=== PATIENT | male | born 1970 | race Caucasian/White ===

== ENCOUNTER → 2021-08-07 | Emergency (ER) | payer OTHER, MEDICAID ==
[~2021-08-07] VITALS: Ht 170.2 cm; Wt 131.5 kg
[~2021-08-07] MED LIST: ASPIRIN 325 MG TABLET PO ONE; NACL 0.9% 1,000 ML IV ONE; THIAMINE HCL 100 MG in NS 50 ML IV ONE; THIAMINE HCL 100 MG/ML VIAL ONE
[2021-08-07 02:19] VITALS: BP_SYST 134
--- NOTE | 2021-08-07 04:06 | NUR ---
Patient to ER bed 2 to gown for evaluation. Side rails up. Report given to self.
[2021-08-07 04:45] LABS: CALCIUM 7.6 mg/dL (8.4-11.0); CREATININE 0.79 mg/dL (0.55-1.30); POTASSIUM 3.7 mmol/L (3.5-5.1)
[2021-08-07 04:50] LABS: ALBUMIN 3.1 g/dL (3.4-4.8); TOTAL BILIRUBIN 0.4 mg/dL (0.0-1.0)
--- NOTE | 2021-08-07 05:26 | NUR ---
# 22 gauge angiocath placed to right hand. Use of asceptic technique. Opsite placed over site. Blood return noted. Blood for lab drawn from site. Flushed with 10 cc of normal saline. No evidence of infiltration noted. Patient tolerated well.
[2021-08-07 05:51] LABS: HEMATOCRIT 29.3 % (36-54); HEMOGLOBIN 11.6 g/dL (14.0-18.0); MEAN CORPUSCULAR HEMOGLOBIN 31 pg (27-31); MEAN CORPUSCULAR HGB CONC 40 % (32-36); MEAN CORPUSCULAR VOLUME 79 fL (79.0-98.0); PLATELET COUNT (AUTO) 263 K/uL (130-430); RED BLOOD CELL COUNT(AUTO) 3.73 MIL/uL (4.2-6.2); RED CELL DISTRIBUTION WIDTH 24.3 % (9.0-15.0); WHITE BLOOD COUNT (AUTO) 5.1 K/uL (4.8-10.8)
[2021-08-07 07:14] LABS: BASOPHILS % (MANUAL) 0 % (0-2); EOSINOPHILS % (MANUAL) 4 % (0-7); LYMPHOCYTES % (MANUAL) 56 % (20-46); MONOCYTES % (MANUAL) 4 % (0-11)
--- NOTE | 2021-08-07 07:43 | NUR ---
EKG not done. Dr Auguste aware. IVF not infused. Dr Auguste aware. Patient noted to be altered. Patient stated he is "stranded" and does not have a ride to get home. Scarlett GIBBS called to assist with discharge. Patient given written and verbal discharge instructions and verbalizes understanding. ER MD discussed with patient the results and treatment provided. Patient in stable condition. ID arm band removed. IV catheter removed intact and dressing applied, no active bleeding. Patient educated on pain management and to follow up with PMD. Opportunity for questions provided and answered.
[2021-08-07 07:45] VITALS: BP_SYST 134
--- NOTE | 2021-08-07 07:50 | NUR ---
Patient asking where nearest upad is. Patient informed we are awaiting SW to assist with his discharge. Patient instructed not to leave ER, and to wait in his room until SW assists. Cameron stated "Ok, thank you very much." Addendum: 08/07/21 at 0903 by [email or web address] *Patient
--- NOTE | 2021-08-07 08:35 | NUR ---
[facility] SW to bedside to provide pt with resources
--- NOTE | 2021-08-07 09:59 | NUR ---
Spoke w/ patient. He stated he has a residence in [place] and he will need transportation to his residence. He was given information on [facility] rehab and mental health resources in the [facility] area. He was informed he will be given a taxi voucher to his residence, when he is medically stable to ID.
--- NOTE | 2021-08-07 10:30 | NUR ---
Patient escorted to lobby to leave with taxi cab driver
== END | disposition home or self-care (01) ==
LOC: SED 02:19
DX: R07.9 Chest pain, unspecified (principal); E11.9 Type 2 diabetes mellitus without complications; I10 Essential (primary) hypertension
CPT/HCPCS: 36415; 71045; 80053; 83735; 85007; 85027; 96365; 99284; J3411; 96360; 96361; 99285